=== PATIENT | male | born 1990 | race American Indian/Alaskan Native ===

== ENCOUNTER 2017-06-01 18:42 | Emergency (ER) | payer OTHER ==
[2017-06-01 18:55] VITALS: RESP 18; TEMP 97.9
[2017-06-01 19:55] LABS: BASO # 0.02 K/mm3 (0.0-2.0); BASO % 0.3 % (0.0-3.0); EOS # 0.2 (0.0-0.7); EOS % 2.4 % (1.5-5.0); GRAN # 4.67 (1.4-6.5); GRAN % 60.9 % (50.0-68.0); HEMATOCRIT 37.8 % (42.0-52.0); LYMPH # 1.8 (1.2-3.4); LYMPH % 24.1 % (22.0-35.0); MEAN CELL VOLUME 82.4 fl (80.0-105.0); MEAN CORPUSCULAR HEMOGLOBIN 27.2 pg (25.0-35.0); MEAN CORPUSCULAR HGB CONC 33.1 g/dl (31.0-37.0); MONO # 0.9 (0.1-0.6); MONO % 12.3 % (1.0-6.0); RED CELL DISTRIBUTION WIDTH 13.4 % (11.5-14.5); WHITE BLOOD COUNT 7.7 10^3/ul (4.5-11.0)
[2017-06-01 20:02] LABS: ALB/GLOB RATIO 1.3 (1.1-1.8); ALKALINE PHOSPHATASE 73 U/L (38-126); ALT/SGPT 28 U/L (7-56); AST/SGOT 20 U/L (17-59); BILIRUBIN,TOTAL 0.6 mg/dL (0.2-1.3); BLOOD UREA NITROGEN 16 mg/dL (7-21); CALCIUM 9.1 mg/dL (8.4-10.5); CARBON DIOXIDE 26 mmol/L (21-33); CHLORIDE 103 mmol/L (98-107); GFR AFRICAN-AMERICAN > 60; GLUCOSE,RANDOM 85 mg/dL (70-110); LIPASE 51 U/L (23-300); POTASSIUM 3.9 mmol/L (3.6-5.0); SODIUM 141 mmol/L (132-148); TOTAL PROTEIN 7.4 g/dL (5.8-8.3)
[2017-06-01 21:04] VITALS: BP 131/78; PULSE 72; O2SAT 97
--- NOTE | 2017-06-01 21:18 | CT ---
EXAM: CT Abdomen and Pelvis Without Intravenous Contrast EXAM DATE/TIME: 06/01/2017 6:57 PM CLINICAL HISTORY: 27 years old, male; Pain; Abdominal pain; Acute TECHNIQUE: Axial computed tomography images of the abdomen and pelvis without intravenous contrast. All CT scans at this facility use one or more dose reduction techniques, viz.: automated exposure control; ma/kV adjustment per patient size (including targeted exams where dose is matched to indication; i.e. head); or iterative reconstruction technique. Coronal and sagittal reformatted images were created and reviewed. COMPARISON: There are no prior studies for comparison. FINDINGS: Lower thorax: Heart size is normal. Lung bases are clear. ABDOMEN: Liver: unremarkable Gallbladder and bile ducts: unremarkable Pancreas: unremarkable Spleen: unremarkable Adrenals: unremarkable Kidneys and ureters: There are bilateral nonobstructing renal stones. Orientation suggests tubular ectasia. Left kidney and ureter are otherwise unremarkable. There is obstructive uropathy on the right. There is a 3 mm obstructing distal right ureteral stone just proximal to the ureteropelvic junction. Stomach and bowel: Stomach is almost empty. Rotation is normal. There is fluid and air throughout the small bowel. There are mildly distended loops in epigastric region. There is no obstruction. Fecalization of the terminal ileum. Appendix is unremarkable.Colon is incompletely distended which limits evaluation. Appendix: See stomach and bowel PELVIS: Bladder: Bladder is partially distended. There is mild prominence of the bladder wall. Reproductive: Seminal vesicles and prostate are unremarkable. ABDOMEN and PELVIS: Intraperitoneal space: There is no free air or free fluid. Bones/joints: There are no acute osseous abnormalities. Soft tissues: unremarkable Vasculature: Vascular structures are unremarkable. Lymph nodes: There is no pathologic adenopathy. 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
--- NOTE | 2017-06-01 21:46 | ED PDOC ---
Arrival/HPI - General Chief Complaint: Back Pain Time Seen by Provider: 06/01/17 18:57 Historian: Patient, Parent - History of Present Illness Narrative History of Present Illness (Text): 06/01/17 21:43 27yo male with PMHx of Autism in Ed with the mother with complaint of intermittent right side back pain that radiates through the flank to his groin area. Mother states pain has been ongoing for almost 2years now. States it started again recently. He was seen by his PMD and according to the mother US was done and it was negative. States she gave him Aleve earlier in the morning. He denies nausea, vomiting, diarrhea, hematuria, urinary symptoms, any other complaint. Past Medical History - Provider Review Nursing Documentation Reviewed: Yes - Cardiac Hx Cardiac Disorders: Yes Hx Heart Murmur: Yes - Pulmonary Hx Respiratory Disorders: Yes Hx Asthma: Yes - Neurological Hx Neurological Disorder: No - HEENT Hx HEENT Disorder: No - Renal Hx Renal Disorder: No - Endocrine/Metabolic Hx Endocrine Disorders: No - Hematological/Oncological Hx Blood Disorders: No - Integumentary Hx Dermatological Disorder: No - Musculoskeletal/Rheumatological Hx Musculoskeletal Disorders: No - Gastrointestinal Hx Gastrointestinal Disorders: No - Genitourinary/Gynecological Hx Genitourinary Disorders: No - Psychiatric Hx Psychophysiologic Disorder: Yes Hx Substance Use: No Other/Comment: autism - Surgical History Other/Comment: ascending testicle. cyst removed from left forehead - Anesthesia Hx Anesthesia: No Family/Social History - Physician Review Nursing Documentation Reviewed: Yes Family/Social History: Unknown Family HX Smoking Status: Never Smoked Hx Alcohol Use: No Hx Substance Use: No Allergies/Home Meds Allergies/Adverse Reactions: Allergies measles, mumps, and rubella vaccine [From M-M-R II] Allergy (Verified 06/01/17 18:53) ANAPHYLAXIS Review of Systems - Physician Review All systems were reviewed & negative as marked: Yes - Review of Systems Constitutional: Normal Eyes: Normal ENT: Normal Respiratory: Normal Cardiovascular: Normal Gastrointestinal: Abdominal Pain. absent: Constipation, Diarrhea, Nausea, Vomiting, Hematochezia, Hematemesis Genitourinary Male: Normal Musculoskeletal: Normal Skin: Normal Neurological: Normal Endocrine: Normal Hemo/Lymphatic: Normal Psychiatric: Normal Physical Exam Vital Signs Reviewed: Yes Vital Signs Temp Pulse Resp BP Pulse Ox 06/01/17 21:04 72 18 131/78 97 06/01/17 18:54 97.9 F 80 18 110/73 98 Temperature: Afebrile Blood Pressure: Normal Pulse: Regular Respiratory Rate: Normal Appearance: Positive for: Well-Appearing, Non-Toxic, Comfortable Pain Distress: None Mental Status: Positive for: Alert and Oriented X 3 - Systems Exam Head: Present: Atraumatic, Normocephalic Pupils: Present: PERRL Extroacular Muscles: Present: EOMI Conjunctiva: Present: Normal Mouth: Present: Moist Mucous Membranes Neck: Present: Normal Range of Motion Respiratory/Chest: Present: Clear to Auscultation, Good Air Exchange. No: Respiratory Distress, Accessory Muscle Use Cardiovascular: Present: Regular Rate and Rhythm, Normal S1, S2. No: Murmurs Abdomen: Present: Normal Bowel Sounds, Other (Soft). No: Tenderness, Distention , Peritoneal Signs, Rebound, Guarding, McBurney's Point Tender, Rovsing's Sign Present Back: Present: Normal Inspection. No: CVA Tenderness Upper Extremity: Present: Normal Inspection. No: Cyanosis, Edema Lower Extremity: Present: Normal Inspection. No: Edema Neurological: Present: GCS=15, CN II-XII Intact, Speech Normal Skin: Present: Warm, Dry, Normal Color. No: Rashes Psychiatric: Present: Alert, Oriented x 3, Normal Insight, Normal Concentration Medical Decision Making ED Course and Treatment: 06/02/17 02:08 PT was comfortable in ED. Lab was unremarkable. 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 Result was DW Dr. phillips and he recommends that pt be DC to f/u with him tomorrow at 0200pm. Pt was placed on Flomax and Cipro. tylenol #3 given. Both pt and the mother was strongly advised to f/u with dr phillips at 0200pm. CT result was discussed. - Lab Interpretations Lab Results: 06/01/17 19:40 06/01/17 19:40 Lab Results 06/01/17 19:40: Sodium 141, Potassium 3.9, Chloride 103, Carbon Dioxide 26, Anion Gap 15, BUN 16, Creatinine 1.0, Est GFR ( Amer) > 60, Est GFR (Non- Af Amer) > 60, Random Glucose 85, Calcium 9.1, Total Bilirubin 0.6, AST 20, ALT 28, Alkaline Phosphatase 73, Total Protein 7.4, Albumin 4.1, Globulin 3.3, Albumin/Globulin Ratio 1.3, Lipase 51 06/01/17 19:40: WBC 7.7, RBC 4.59, Hgb 12.5 L, Hct 37.8 L, MCV 82.4, MCH 27.2, MCHC 33.1, RDW 13.4, Plt Count 175, MPV 10.0, Gran % 60.9, Lymph % (Auto) 24.1, [place] % (Auto) 12.3 H, Eos % (Auto) 2.4, Baso % (Auto) 0.3, Gran # 4.67, Lymph # 1.8, [place] # 0.9 H, Eos # 0.2, Baso # 0.02 - RAD Interpretation Radiology Orders: 06/01/17 18:57 ABD & PELVIS W/O PO OR IV CONT [CT] Stat - Medication Orders Current Medication Orders: Discontinued Medications Ciprofloxacin (Cipro) 500 mg PO ONCE STA PRN Reason: Protocol Stop: 06/01/17 21:49 Last Admin: 06/01/17 22:00 Dose: 500 mg Tamsulosin HCl (Flomax) 0.4 mg PO STAT STA Stop: 06/01/17 21:48 Last Admin: 06/01/17 22:00 Dose: 0.4 mg Disposition/Present on Arrival - Present on Arrival Any Indicators Present on Arrival: No History of DVT/PE: No History of Uncontrolled Diabetes: No Urinary Catheter: No History of Decub. Ulcer: No History Surgical Site Infection Following: None - Disposition Have Diagnosis and Disposition been Completed?: Yes Diagnosis: Ureterolithiasis Disposition: HOME/ ROUTINE Disposition Time: 21:50 Patient Plan: Discharge Condition: STABLE Discharge Instructions (ExitCare): Ureteral Stones (ED) Additional Instructions: Follow up with Urologist, Dr. phillips at 0200pm tomorrow Drink plenty of fluid Return to ED for any new or worsening symptoms Prescriptions: Acetaminophen with Codeine [Tylenol with Codeine #3 Tablet] 1 each PO Q6 #7 tablet Ciprofloxacin [Cipro] 500 mg PO BID #14 tab Tamsulosin [Flomax] 0.4 mg PO DAILY #4 cap Referrals: Celestina Becerra MD [Primary Care Provider] - Follow up with primary Prakash Phillips MD [Staff Provider] - Follow up with primary Forms: [facility] [employer] ([place]ian)
== END 2017-06-01 22:16 | disposition home or self-care (01) ==
LOC: ED 18:42
DX: N20.1 Calculus of ureter (principal)

== ENCOUNTER 2017-06-02 15:47 | Inpatient (IN) | payer OTHER ==
[2017-06-02 16:15] VITALS: BMI 19.8
[2017-06-02] MEDS ORDERED: Sodium Chloride 0.9% 1,000 ML IV STA (17:03)
[2017-06-02 17:48] LABS: URINE BILIRUBIN NEGATIVE (NEGATIVE); URINE BLOOD NEGATIVE (NEGATIVE); URINE GLUCOSE (UA) NEGATIVE (NEGATIVE); URINE LEUKOCYTE ESTERASE NEGATIVE Leu/uL (NEGATIVE); URINE NITRATE NEGATIVE (NEGATIVE); URINE PROTEIN TRACE mg/dL (<30 mg/dL); URINE UROBILINOGEN 0.2 E.U./dL (<1 E.U./dL)
[2017-06-02 17:50] LABS: BASO # 0.01 K/mm3 (0.0-2.0); BASO % 0.2 % (0.0-3.0); EOS # 0.2 (0.0-0.7); GRAN # 3.74 (1.4-6.5); HEMOGLOBIN 12.6 g/dL (14.0-18.0); LYMPH # 1.7 (1.2-3.4); LYMPH % 26.9 % (22.0-35.0); MEAN CELL VOLUME 82.7 fl (80.0-105.0); MEAN CORPUSCULAR HEMOGLOBIN 26.9 pg (25.0-35.0); MEAN CORPUSCULAR HGB CONC 32.5 g/dl (31.0-37.0); MEAN PLATELET VOLUME 10.5 fl (7.0-11.0); MONO # 0.7 (0.1-0.6); MONO % 10.9 % (1.0-6.0); RBC 4.69 10^6/uL (3.5-6.1); RED CELL DISTRIBUTION WIDTH 13.5 % (11.5-14.5); WHITE BLOOD COUNT 6.3 10^3/ul (4.5-11.0)
[2017-06-02 17:51] LABS: URINE APPEARANCE CLEAR (CLEAR); URINE COLOR YELLOW (YELLOW)
[2017-06-02 18:01] LABS: ALB/GLOB RATIO 1.3 (1.1-1.8); ALBUMIN 4.1 g/dL (3.0-4.8); BLOOD UREA NITROGEN 13 mg/dL (7-21); CALCIUM 9.1 mg/dL (8.4-10.5); GFR AFRICAN-AMERICAN > 60; GFR NON-AFRICAN AMERICAN > 60; URINE BACTERIA FEW (NEG)
[2017-06-02 18:02] LABS: ALT/SGPT 21 U/L (7-56); AST/SGOT 25 U/L (17-59)
[2017-06-02] MEDS ORDERED: Morphine 2 mg/ml ISec IVP STA (18:21)
[2017-06-02] MEDS ORDERED: Morphine 2 mg/ml ISec IVP PRN (19:35)
--- NOTE | 2017-06-02 19:44 | CP.PCM.HP ---
<Osman Jackman - Last Filed: 06/02/17 20:06> History of Present Illness - History of Present Illness History of Present Illness: 27 year old male with a past medical history of autism who comes in complaining of lower abdominal pain for the past couple of days. The patient also reports some nausea and vomiting in conjunction with the initial presenting symptoms. The patient recently was seen by Dr. Momin as an outpatient. The patient was somnolent at the time of the examination and most questions were answered by the mother. The mother states they decided to come in after seeing Dr. Momin in the office and the son having no relief in his symptoms. The patient denies any fevers, chills, lightheadedness, dizziness, headache, chest pain, sick contacts, or any other complaints. Primary medical doctor: Dr. Becerra Past medical history: Autism Medications: Denies Allergies: Mealses, mumps and rubella vaccine Past surgical history: Repair of undescended testicle Present on Admission - Present on Admission Any Indicators Present on Admission: No Review of Systems - Constitutional Constitutional: absent: Chills, Frequent Falls, Headache, Night Sweats - EENT Eyes: absent: Blurred Vision, Diplopia, Discharge, Loss of Peripheral Vision, Requires Corrective Lenses, Sees Flashes, Other Visual Disturbances, Loss of Vision Ears: absent: Ear Discharge, Disequilibrium, Dizziness Nose/Mouth/Throat: absent: Nasal Congestion, Nasal Trauma, Nose Pain, Bleeding Gums, Dysphagia - Cardiovascular Cardiovascular: absent: Chest Pain, Claudication, Irregular Heart Rhythm, Leg Edema, Palpitations, Pedal Edema, Syncope - Respiratory Respiratory: absent: Hemoptysis, Pain on Inspiration, Change in Mucous Color - Gastrointestinal Gastrointestinal: Abdominal Pain, Nausea, Vomiting. absent: Belching, Change in Stool Character, Excessive Flatus, Fecal Incontinence, Loose Stools, Temesmus - Genitourinary Genitourinary: absent: Pyuria, Nocturia, Urinary Hesitance, Bladder Distension - Musculoskeletal Musculoskeletal: absent: Abnormal Gait, Arthralgias, Muscle Weakness, Myalgias - Neurological Neurological: absent: Abnormal Hearing, Behavioral Changes, Dizziness, Lack of Coordination, Radicular Pain, Tingling - Psychiatric Psychiatric: absent: Abnormal Sleep Pattern, Behavioral Changes, Depression, Hopelessness, Panic Attacks, Tactile Hallucinations - Endocrine Endocrine: absent: Polydipsia, Polyphagia, Polyuria - Hematologic/Lymphatic Hematologic: absent: Easy Bleeding, Easy Bruising Past Patient History - Past Social History Smoking Status: Never Smoked - CARDIAC Hx Cardiac Disorders: Yes Hx Heart Murmur: Yes - PULMONARY Hx Respiratory Disorders: Yes Hx Asthma: Yes - NEUROLOGICAL Hx Neurological Disorder: No - HEENT Hx HEENT Problems: No - RENAL Hx Chronic Kidney Disease: No - ENDOCRINE/METABOLIC Hx Endocrine Disorders: No - HEMATOLOGICAL/ONCOLOGICAL Hx Blood Disorders: No - INTEGUMENTARY Hx Dermatological Problems: No - MUSCULOSKELETAL/RHEUMATOLOGICAL Hx Musculoskeletal Disorders: No - GASTROINTESTINAL Hx Gastrointestinal Disorders: No - GENITOURINARY/GYNECOLOGICAL Hx Genitourinary Disorders: No - PSYCHIATRIC Hx Psychophysiologic Disorder: Yes Hx Substance Use: No Other/Comment: autism - SURGICAL HISTORY Other/Comment: ascending testicle. cyst removed - ANESTHESIA Hx Anesthesia: Yes Hx Anesthesia Reactions: No Hx Malignant Hyperthermia: No Meds Allergies/Adverse Reactions: Allergies Allergy/AdvReac Type Severity Reaction Status Date / Time measles, mumps, and rubella Allergy ANAPHYLAXIS Verified 06/01/17 18:53 vaccine [From M-M-R II] Physical Exam - Head Exam Head Exam: ATRAUMATIC, NORMAL INSPECTION, NORMOCEPHALIC - Eye Exam Eye Exam: EOMI, Normal appearance, PERRL. absent: Periorbital tenderness Pupil Exam: NORMAL ACCOMODATION, PERRL. absent: Irregular, Unequal - ENT Exam ENT Exam: Mucous Membranes Moist, Normal Oropharynx - Respiratory Exam Respiratory Exam: Clear to Auscultation Bilateral, NORMAL BREATHING PATTERN. absent: Chest Wall Tenderness, Prolonged Expiratory Phase, Respiratory Distress - Cardiovascular Exam Cardiovascular Exam: REGULAR RHYTHM, RRR, +S1, +S2. absent: Gallop, Rubs - GI/Abdominal Exam GI & Abdominal Exam: Normal Bowel Sounds, Tenderness. absent: Distended, Hypoactive Bowel Sounds, Organomegaly - Extremities Exam Extremities exam: Negative for: full ROM, joint swelling, pedal edema, tenderness - Back Exam Back exam: CVA tenderness (R), NORMAL INSPECTION - Neurological Exam Neurological exam: Alert, CN II-XII Intact, Oriented x3 - Psychiatric Exam Psychiatric exam: Normal Affect, Normal Mood - Skin Skin Exam: Dry, Intact, Normal Color Results - Vital Signs Recent Vital Signs: Last Vital Signs Temp 98.2 F 06/02/17 16:24 Pulse 79 06/02/17 17:33 Resp 18 06/02/17 17:33 BP 123/71 06/02/17 17:33 Pulse Ox 100 06/02/17 17:33 - Labs Result Diagrams: 06/02/17 17:30 06/02/17 17:30 Assessment & Plan - Assessment and Plan (Free Text) Assessment: 27 year old male with past medical history of autism who is being admitted for a 3 mm obstructing distal right ureteral stone. Plan: 1. 3MM Obstructing distal right ureteral stone -Urology Consulted. Will f/u with results. -NPO -IV fluids -Morphine 2mg q4PRN for pain management. GI ppx -Protonix DVT ppx -Heparin <Cara Nevarez - Last Filed: 06/04/17 03:25> Results - Vital Signs Recent Vital Signs: Last Vital Signs Temp 98.6 F 06/03/17 18:00 Pulse 69 06/03/17 18:00 Resp 18 06/03/17 18:00 BP 117/69 06/03/17 18:00 Pulse Ox 98 06/03/17 18:00 - Labs Result Diagrams: 06/03/17 05:30 06/03/17 05:30 Labs: Laboratory Results - last 24 hr 06/03/17 06/03/17 05:30 05:30 WBC 5.0 D RBC 4.39 Hgb 11.6 L Hct 36.3 L MCV 82.7 MCH 26.4 MCHC 32.0 RDW 13.6 Plt Count 167 MPV 10.5 Gran % 31.8 L Lymph % (Auto) 55.2 H [place] % (Auto) 6.5 H Eos % (Auto) 6.3 H Baso % (Auto) 0.2 Gran # 1.58 Lymph # 2.7 [place] # 0.3 Eos # 0.3 Baso # 0.01 Sodium 140 Potassium 3.7 Chloride 106 Carbon Dioxide 30 Anion Gap 8 L BUN 11 Creatinine 0.8 Est GFR ( Amer) > 60 Est GFR (Non-Af Amer) > 60 Random Glucose 77 Calcium 8.5 Total Bilirubin 0.7 AST 18 ALT 18 Alkaline Phosphatase 47 Total Protein 6.3 Albumin 3.3 Globulin 3.0 Albumin/Globulin Ratio 1.1
--- NOTE | 2017-06-02 20:09 | ED PDOC ---
Arrival/HPI - General Chief Complaint: Abdominal Pain Time Seen by Provider: 06/02/17 17:02 Historian: Patient, Parent - History of Present Illness Narrative History of Present Illness (Text): 06/02/17 21:01 27-year-old autistic male presents today with continued abdominal pain. Patient points to the right side of the abdomen when he asked where his pain is. Mom states the patient was seen in the emergency room yesterday and diagnosed with an obstructing kidney stone. Mom states the patient has been taking Motrin for pain at home. Mom states the patient was seen by the the urologist Dr. Phillips today in the office. Mom states the patient has been taking Flomax and Cipro for infection. Mom presents today with the patient because the patient is complaining of continued pain. Patient unable to describe the pain is only able to point to the right side of the abdomen. Past Medical History - Provider Review Nursing Documentation Reviewed: Yes - Travel History Have you recently traveled outside [place] w/in the past 3 mons?: No - Cardiac Hx Cardiac Disorders: Yes Hx Heart Murmur: Yes - Pulmonary Hx Respiratory Disorders: Yes Hx Asthma: Yes - Neurological Hx Neurological Disorder: No - HEENT Hx HEENT Disorder: No - Renal Hx Renal Disorder: No - Endocrine/Metabolic Hx Endocrine Disorders: No - Hematological/Oncological Hx Blood Disorders: No - Integumentary Hx Dermatological Disorder: No - Musculoskeletal/Rheumatological Hx Musculoskeletal Disorders: No - Gastrointestinal Hx Gastrointestinal Disorders: No - Genitourinary/Gynecological Hx Genitourinary Disorders: No - Psychiatric Hx Psychophysiologic Disorder: Yes Hx Substance Use: No Other/Comment: autism - Surgical History Other/Comment: ascending testicle. cyst removed - Anesthesia Hx Anesthesia: Yes Hx Anesthesia Reactions: No Hx Malignant Hyperthermia: No Family/Social History - Physician Review Nursing Documentation Reviewed: Yes Family/Social History: Unknown Family HX Smoking Status: Never Smoked Hx Alcohol Use: No Hx Substance Use: No Allergies/Home Meds Allergies/Adverse Reactions: Allergies measles, mumps, and rubella vaccine [From M-M-R II] Allergy (Verified 06/01/17 18:53) ANAPHYLAXIS Review of Systems - Review of Systems Systems not reviewed;Unavailable: Other (autism) Constitutional: absent: Fevers Respiratory: absent: Cough Cardiovascular: absent: Chest Pain Gastrointestinal: Abdominal Pain, Vomiting Genitourinary Male: absent: Frequency, Urinary Output Changes Musculoskeletal: Back Pain Skin: absent: Rash Neurological: absent: Headache Physical Exam Vital Signs Reviewed: Yes Vital Signs Temp Pulse Resp BP Pulse Ox 06/02/17 20:41 68 16 105/65 98 06/02/17 17:33 79 18 123/71 100 06/02/17 16:24 98.2 F 86 18 125/76 100 Temperature: Afebrile Blood Pressure: Normal Pulse: Regular Respiratory Rate: Normal Appearance: Positive for: Well-Appearing, Non-Toxic, Comfortable Pain Distress: None Mental Status: Positive for: Alert and Oriented X 3 - Systems Exam Head: Present: Atraumatic Mouth: Present: Moist Mucous Membranes Neck: Present: Normal Range of Motion Respiratory/Chest: Present: Clear to Auscultation, Good Air Exchange. No: Respiratory Distress, Accessory Muscle Use Cardiovascular: Present: Regular Rate and Rhythm, Normal S1, S2. No: Murmurs Abdomen: Present: Tenderness (minimal right sided abdominal tenderness), Normal Bowel Sounds. No: Distention, Peritoneal Signs, Rebound, Guarding Back: Present: Normal Inspection, CVA Tenderness (right sided) Skin: Present: Warm, Dry, Normal Color. No: Rashes Psychiatric: Present: Alert Medical Decision Making ED Course and Treatment: 06/02/17 21:04 27-year-old male with continued abdominal pain. Patient seen in the emergency room yesterday diagnosed with obstructing kidney stone. CBC within normal limits CMP within normal limits Urinalysis within normal limits Toradol given for pain Zofran given for nausea ct abd/pelvis on 06/01/17: FINDINGS: Lower thorax: Heart size is normal. Lung bases are clear. ABDOMEN: Liver: unremarkable Gallbladder and bile ducts: unremarkable Pancreas: unremarkable Spleen: unremarkable Adrenals: unremarkable Kidneys and ureters: There are bilateral nonobstructing renal stones. Orientation suggests tubular ectasia. Left kidney and ureter are otherwise unremarkable. There is obstructive uropathy on the right. There is a 3 mm obstructing distal right ureteral stone just proximal to the ureteropelvic junction. Stomach and bowel: Stomach is almost empty. Rotation is normal. There is fluid and air throughout the small bowel. There are mildly distended loops in epigastric region. There is no obstruction. Fecalization of the terminal ileum. Appendix is unremarkable.Colon is incompletely distended which limits evaluation. Appendix: See stomach and bowel PELVIS: Bladder: Bladder is partially distended. There is mild prominence of the bladder wall. Reproductive: Seminal vesicles and prostate are unremarkable. ABDOMEN and PELVIS: Intraperitoneal space: There is no free air or free fluid. Bones/joints: There are no acute osseous abnormalities. Soft tissues: unremarkable Vasculature: Vascular structures are unremarkable. Lymph nodes: There is no pathologic adenopathy. 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 Patient reassessment:feeling better after medications. resting comfortably with mother at bedside. Case was discussed with Dr. Phillips. He states that he saw the patient in the office today and he would like to do a procedure for the kidney stone tomorrow. Case was discussed with Dr. Tristan who accepts observational status admission for intractable abdominal pain obstructing kidney stone. All results were discussed in depth with the parents/patient. Impression: Intractable abdominal pain, obstructing nephrolithiasis Admit observational status to [facility] with urology consult Dr. Phillips. - Lab Interpretations Lab Results: 06/02/17 17:30 06/02/17 17:30 Lab Results 06/02/17 17:30: WBC 6.3, RBC 4.69, Hgb 12.6 L, Hct 38.8 L, MCV 82.7, MCH 26.9, MCHC 32.5, RDW 13.5, Plt Count 189, MPV 10.5, Gran % 59.0, Lymph % (Auto) 26.9, [place] % (Auto) 10.9 H, Eos % (Auto) 3.0, Baso % (Auto) 0.2, Gran # 3.74, Lymph # 1.7, [place] # 0.7 H, Eos # 0.2, Baso # 0.01 06/02/17 17:30: Urine Color Yellow, Urine Appearance Clear, Urine pH 6.0, Ur Specific [place] >= 1.030, Urine Protein Trace H, Urine Glucose (UA) Negative, Urine Ketones Negative, Urine Blood Negative, Urine Nitrate Negative, Urine Bilirubin Negative, Urine Urobilinogen 0.2, Ur Leukocyte Esterase Negative, Urine RBC 1 - 3, Urine WBC 1 - 3, Ur Epithelial Cells 3 - 4, Urine Bacteria Few 06/02/17 17:30: Sodium 140, Potassium 4.4, Chloride 101, Carbon Dioxide 28, Anion Gap 15, BUN 13, Creatinine 1.2, Est GFR ( Amer) > 60, Est GFR (Non- Af Amer) > 60, Random Glucose 82, Calcium 9.1, Total Bilirubin 0.6, AST 25, ALT 21, Alkaline Phosphatase 50, Total Protein 7.2, Albumin 4.1, Globulin 3.0, Albumin/Globulin Ratio 1.3 - Medication Orders Current Medication Orders: Sodium Chloride (Sodium Chloride 0.9%) 1,000 mls @ 100 mls/hr IV .Q10H [facility] Morphine Sulfate (Morphine) 2 mg IVP Q4 PRN PRN Reason: Pain, severe (8-10) Ondansetron HCl (Zofran Inj) 2 mg IVP Q4 PRN PRN Reason: Nausea/Vomiting Discontinued Medications Sodium Chloride (Sodium Chloride 0.9%) 1,000 mls @ 999 mls/hr IV .Q1H1M STA Stop: 06/02/17 18:03 Last Admin: 06/02/17 17:31 Dose: 999 mls/hr eMAR Start Stop Document 06/02/17 17:31 HI (Rec: 06/02/17 17:31 [place] [id number]) Intravenous Solution Start Date 06/02/17 Start Time 17:31 Ketorolac Tromethamine (Toradol) 30 mg IVP STAT STA Stop: 06/02/17 17:04 Last Admin: 06/02/17 17:31 Dose: 30 mg MAR Pain Assessment Document 06/02/17 17:31 HI (Rec: 06/02/17 17:32 [place] [id number]) Pain Reassessment Is this a pain reassessment? No Sleep Is patient sleeping during reassessment? No Presence of Pain Presence of Pain Yes IVP Administration Document 06/02/17 17:31 HI (Rec: 06/02/17 17:32 [id number]) Charges for Administration # of IVP Administrations 1 Re-Assess: MAR Pain Assessment Document 06/02/17 18:31 HI (Rec: 06/02/17 18:52 [place] [id number]) Pain Reassessment Is this a pain reassessment? Yes Sleep Is patient sleeping during reassessment? No Presence of Pain Presence of Pain Yes Morphine Sulfate (Morphine) 2 mg IVP STAT STA Stop: 06/02/17 18:22 Last Admin: 06/02/17 19:01 Dose: 2 mg MAR Pain Assessment Document 06/02/17 19:01 HI (Rec: 06/02/17 19:02 [place] [id number]) Pain Reassessment Is this a pain reassessment? Yes Sleep Is patient sleeping during reassessment? No Presence of Pain Presence of Pain Yes IVP Administration Document 06/02/17 19:01 HI (Rec: 06/02/17 19:02 [place] [id number]) Charges for Administration # of IVP Administrations 1 Ondansetron HCl (Zofran Inj) 4 mg IVP STAT STA Stop: 06/02/17 18:22 Last Admin: 06/02/17 19:02 Dose: 4 mg IVP Administration Document 06/02/17 19:02 HI (Rec: 06/02/17 19:02 [place] [id number]) Charges for Administration # of IVP Administrations 1 Disposition/Present on Arrival - Present on Arrival Any Indicators Present on Arrival: No History of DVT/PE: No History of Uncontrolled Diabetes: No Urinary Catheter: No History of Decub. Ulcer: No History Surgical Site Infection Following: None - Disposition Have Diagnosis and Disposition been Completed?: Yes Diagnosis: Intractable abdominal pain, Urinary tract obstruction by kidney stone Disposition: HOSPITALIZED Disposition Time: 18:08 Patient Plan: Observation Patient Problems: Current Active Problems Problem Status Onset Intractable abdominal pain Acute Urinary tract obstruction by kidney stone Acute Condition: FAIR
[2017-06-02] MEDS: Sodium Chloride 0.9% 1,000 ML IV SCH (21:47)
[2017-06-03 06:25] LABS: BASO # 0.01 K/mm3 (0.0-2.0); BASO % 0.2 % (0.0-3.0); EOS # 0.3 (0.0-0.7); EOS % 6.3 % (1.5-5.0); GRAN # 1.58 (1.4-6.5); GRAN % 31.8 % (50.0-68.0); HEMOGLOBIN 11.6 g/dL (14.0-18.0); LYMPH # 2.7 (1.2-3.4); LYMPH % 55.2 % (22.0-35.0); MEAN CELL VOLUME 82.7 fl (80.0-105.0); MEAN CORPUSCULAR HEMOGLOBIN 26.4 pg (25.0-35.0); MEAN PLATELET VOLUME 10.5 fl (7.0-11.0); MONO # 0.3 (0.1-0.6); MONO % 6.5 % (1.0-6.0); RBC 4.39 10^6/uL (3.5-6.1); RED CELL DISTRIBUTION WIDTH 13.6 % (11.5-14.5)
[2017-06-03] MEDS: Sodium Chloride 0.9% 1,000 ML IV SCH ×2 (06:35→17:27)
[2017-06-03 06:50] LABS: ALB/GLOB RATIO 1.1 (1.1-1.8); ALBUMIN 3.3 g/dL (3.0-4.8); ALT/SGPT 18 U/L (7-56); AST/SGOT 18 U/L (17-59); BLOOD UREA NITROGEN 11 mg/dL (7-21); CALCIUM 8.5 mg/dL (8.4-10.5); GFR AFRICAN-AMERICAN > 60; GFR NON-AFRICAN AMERICAN > 60
--- NOTE | 2017-06-03 10:10 | PCM.URO ---
Urology Progress Note - Subjective Abdominal Pain: Yes - Objective Lab Studies: Reviewed (pt for cysto 06/04 at 7:30 am) Lab Results Last 24 Hours: Laboratory Results - last 24 hr 06/03/17 06/03/17 05:30 05:30 WBC 5.0 D RBC 4.39 Hgb 11.6 L Hct 36.3 L MCV 82.7 MCH 26.4 MCHC 32.0 RDW 13.6 Plt Count 167 MPV 10.5 Gran % 31.8 L Lymph % (Auto) 55.2 H [place] % (Auto) 6.5 H Eos % (Auto) 6.3 H Baso % (Auto) 0.2 Gran # 1.58 Lymph # 2.7 [place] # 0.3 Eos # 0.3 Baso # 0.01 Sodium 140 Potassium 3.7 Chloride 106 Carbon Dioxide 30 Anion Gap 8 L BUN 11 Creatinine 0.8 Est GFR ( Amer) > 60 Est GFR (Non-Af Amer) > 60 Random Glucose 77 Calcium 8.5 Total Bilirubin 0.7 AST 18 ALT 18 Alkaline Phosphatase 47 Total Protein 6.3 Albumin 3.3 Globulin 3.0 Albumin/Globulin Ratio 1.1 Intake & Output: Intake & Output 06/02/17 06/03/17 06/03/17 18:59 06:59 18:59 Intake Total 120 Output Total 0 Balance 120 Intake: Oral 120 Output: Urine 0 Urine, Voided 0 Other: # Voids Urine, Voided 1 # Bowel Movements 0 Vital Signs: Vital Signs - 24 hr 06/02/17 06/02/17 06/03/17 20:41 23:04 06:00 Temperature 98.1 F 97.6 F Pulse Rate 68 63 58 L Respiratory 16 19 18 Rate Blood Pressure 105/65 106/74 118/76 O2 Sat by Pulse 98 99 Oximetry
--- NOTE | 2017-06-03 10:48 | CP.PCM.PN ---
<Billy Noonan - Last Filed: 06/03/17 10:42> Subjective - Date & Time of Evaluation Date of Evaluation: 06/03/17 Time of Evaluation: 07:30 - Subjective Subjective: Billy Noonan DO PGY1 - Internal Medicine Progress Note Patient seen and examined at bedside. No events overnight. Today, patient reports some improvement in his abdominal pain. Denies any nausea, vomiting, fever, chills, dysuria, hematuria. Objective - Vital Signs/Intake and Output Vital Signs (last 24 hours): Temp Pulse Resp BP Pulse Ox 97.6 F 58 L 18 118/76 99 06/03/17 06:00 06/03/17 06:00 06/03/17 06:00 06/03/17 06:00 06/03/17 06:00 Intake and Output: 06/03/17 06/03/17 06:59 18:59 Intake Total 120 Output Total 0 Balance 120 - Medications Medications: Current Medications Sodium Chloride (Sodium Chloride 0.9%) 1,000 mls @ 100 mls/hr IV .Q10H [facility] Last Admin: 06/03/17 06:35 Dose: 100 mls/hr Morphine Sulfate (Morphine) 2 mg IVP Q4 PRN PRN Reason: Pain, severe (8-10) Ondansetron HCl (Zofran Inj) 2 mg IVP Q4 PRN PRN Reason: Nausea/Vomiting Tamsulosin HCl (Flomax) 0.4 mg PO DAILY [facility] - Labs Labs: 06/03/17 05:30 06/03/17 05:30 - Constitutional Appears: Non-toxic, No Acute Distress, Confused - Head Exam Head Exam: ATRAUMATIC, NORMOCEPHALIC - Eye Exam Eye Exam: EOMI, Normal appearance, PERRL - ENT Exam ENT Exam: Mucous Membranes Moist - Neck Exam Neck Exam: Normal Inspection - Respiratory Exam Respiratory Exam: Clear to Ausculation Bilateral, NORMAL BREATHING PATTERN - Cardiovascular Exam Cardiovascular Exam: REGULAR RHYTHM, +S1, +S2 - GI/Abdominal Exam GI & Abdominal Exam: Soft, Normal Bowel Sounds. absent: Distended, Firm, Guarding, Rigid, Tenderness, Organomegaly - Extremities Exam Extremities Exam: absent: Calf Tenderness, Pedal Edema - Back Exam Back Exam: absent: CVA tenderness (L), CVA tenderness (R) - Neurological Exam Neurological Exam: Alert, Awake, Oriented x3 - Psychiatric Exam Additional comments: Patient somnolent, slow to respond, avoids gaze. - Skin Skin Exam: Dry, Intact, Normal Color Assessment and Plan - Assessment and Plan (Free Text) Assessment: 27 year old male with past medical history of autism who is being admitted for a 3 mm obstructing distal right ureteral stone. Plan: 1. 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 Phillips) who scheduled him for cystoscopy tomorrow at 7:30 AM - Continue IV fluids - Start Flomax - Continue Morphine 2mg q4PRN for pain management; patient has not requested it and pain currently improved since yesterday GI/DVT Ppx - Heparin and Protonix Patient seen, discussed, and reviewed with attending <Philippe Ladd - Last Filed: 06/03/17 16:12> Objective - Vital Signs/Intake and Output Vital Signs (last 24 hours): Temp Pulse Resp BP Pulse Ox 97.6 F 58 L 18 118/76 99 06/03/17 06:00 06/03/17 06:00 06/03/17 06:00 06/03/17 06:00 06/03/17 06:00 Intake and Output: 06/03/17 06/03/17 06:59 18:59 Intake Total 120 Output Total 0 Balance 120 - Medications Medications: Current Medications Famotidine (Pepcid) 40 mg PO HS [facility] Sodium Chloride (Sodium Chloride 0.9%) 1,000 mls @ 100 mls/hr IV .Q10H [facility] Last Admin: 06/03/17 06:35 Dose: 100 mls/hr Morphine Sulfate (Morphine) 2 mg IVP Q4 PRN PRN Reason: Pain, severe (8-10) Ondansetron HCl (Zofran Inj) 2 mg IVP Q4 PRN PRN Reason: Nausea/Vomiting Tamsulosin HCl (Flomax) 0.4 mg PO DAILY [facility] - Labs Labs: 06/03/17 05:30 06/03/17 05:30 Attending/Attestation - Attestation I have personally seen and examined this patient.: Yes I have fully participated in the care of the patient.: Yes I have reviewed all pertinent clinical information, including history, physical exam and plan: Yes Notes (Text): 06/03/17 16:10 Patient was seen and examined with administrative medical director. Agreed with resident assessment and plan. 27 yrs old male was admitted with flank pain due to right ureter stone, pain is improved. Patient is for Lithotripsy tomorrow. Management plan was discussed in detail with patient
[2017-06-04] MEDS: Sodium Chloride 0.9% 1,000 ML IV SCH ×2 (01:45→22:24)
[2017-06-04 06:38] LABS: BASO # 0.02 K/mm3 (0.0-2.0); BASO % 0.4 % (0.0-3.0); EOS # 0.3 (0.0-0.7); EOS % 5.2 % (1.5-5.0); GRAN # 1.7 (1.4-6.5); GRAN % 34.2 % (50.0-68.0); HEMOGLOBIN 11.3 g/dL (14.0-18.0); LYMPH # 2.6 (1.2-3.4); LYMPH % 52.8 % (22.0-35.0); MEAN CELL VOLUME 81.8 fl (80.0-105.0); MEAN CORPUSCULAR HEMOGLOBIN 26.3 pg (25.0-35.0); MEAN CORPUSCULAR HGB CONC 32.2 g/dl (31.0-37.0); MEAN PLATELET VOLUME 10.3 fl (7.0-11.0); MONO # 0.4 (0.1-0.6); MONO % 7.4 % (1.0-6.0); RBC 4.29 10^6/uL (3.5-6.1); RED CELL DISTRIBUTION WIDTH 13.4 % (11.5-14.5)
[2017-06-04 06:47] LABS: ALB/GLOB RATIO 1.1 (1.1-1.8); ALBUMIN 3.2 g/dL (3.0-4.8); ALT/SGPT 28 U/L (7-56); AST/SGOT 26 U/L (17-59); BLOOD UREA NITROGEN 7 mg/dL (7-21); CALCIUM 8.5 mg/dL (8.4-10.5); GFR AFRICAN-AMERICAN > 60; GFR NON-AFRICAN AMERICAN > 60
[2017-06-04] MEDS ORDERED: Lidocaine 2% Jelly (Uro-Jet) ONE (08:01)
[2017-06-04] MEDS ORDERED: Iohexol 240 (50 ml) ONE (08:01)
[2017-06-04] MEDS ORDERED: Propofol 10 mg/ml Inj (20 ML) ONE (08:16)
[2017-06-04] MEDS ORDERED: Midazolam 2 MG/2 ML VIAL ONE (08:17)
[2017-06-04] MEDS ORDERED: Iohexol 240 (50 ml) UR ONE ×2 (08:28→08:34)
[2017-06-04] MEDS ORDERED: cefTRIAXone 1 GM in D5W 100 ML BAG IVPB ONE ×2 (08:32→08:35)
[2017-06-04] MEDS ORDERED: cefTRIAXone (Rocephin) 1 gm Inj ONE (08:32)
[2017-06-04] MEDS ORDERED: Lidocaine 2% Jelly (Uro-Jet) TOP ONE ×2 (08:36→08:48)
[2017-06-04] MEDS ORDERED: Lactated Ringer's 1,000 ML IV SCH (09:15)
--- NOTE | 2017-06-04 11:08 | CP.PCM.PN ---
<Jimmy Noonanenrriquemaría elena - Last Filed: 06/04/17 11:05> Subjective - Date & Time of Evaluation Date of Evaluation: 06/04/17 Time of Evaluation: 07:30 - Subjective Subjective: Luis Danielmaría elena Saran WERNER PGY1 - Internal Medicine Progress Note Patient seen and examined at bedside, initially seen en route to surgery, then seen again postoperatively. Prior to his procedure, he denied any pain, but did report that he 'avoids bending his body'. After the procedure, he was complaining of moderate dysuria and hematuria, seen in the bedside urinal. He denies any fever, chills, abdominal pain, nausea, vomiting. Objective - Vital Signs/Intake and Output Vital Signs (last 24 hours): Temp Pulse Resp BP Pulse Ox 97.3 F L 75 18 139/87 100 06/04/17 09:44 06/04/17 09:44 06/04/17 09:44 06/04/17 09:44 06/04/17 09:44 Intake and Output: 06/04/17 06/04/17 06:59 18:59 Intake Total 720 Output Total 700 Balance 20 - Medications Medications: Current Medications Famotidine (Pepcid) 40 mg PO HS [facility] Last Admin: 06/03/17 21:45 Dose: 40 mg Sodium Chloride (Sodium Chloride 0.9%) 1,000 mls @ 100 mls/hr IV .Q10H [facility] Last Admin: 06/04/17 01:45 Dose: 100 mls/hr Lactated Ringer's (Lactated Ringer's) 1,000 mls @ 75 mls/hr IV .[id number] [facility] Stop: 06/04/17 11:16 Ketorolac Tromethamine (Toradol) 30 mg IVP STAT STA Stop: 06/04/17 11:04 Ketorolac Tromethamine (Toradol) 30 mg IVP Q6H PRN PRN Reason: Pain, moderate (4-7) Morphine Sulfate (Morphine) 2 mg IVP Q4 PRN PRN Reason: Pain, severe (8-10) Ondansetron HCl (Zofran Inj) 2 mg IVP Q4 PRN PRN Reason: Nausea/Vomiting Tamsulosin HCl (Flomax) 0.4 mg PO DAILY [facility] Last Admin: 06/03/17 12:00 Dose: 0.4 mg - Labs Labs: 06/04/17 05:00 06/04/17 05:30 - Constitutional Appears: Non-toxic, No Acute Distress - Head Exam Head Exam: ATRAUMATIC, NORMOCEPHALIC - Eye Exam Eye Exam: EOMI, Normal appearance, PERRL - ENT Exam ENT Exam: Mucous Membranes Moist - Neck Exam Neck Exam: Normal Inspection - Respiratory Exam Respiratory Exam: Clear to Ausculation Bilateral, NORMAL BREATHING PATTERN - Cardiovascular Exam Cardiovascular Exam: REGULAR RHYTHM, +S1, +S2 - GI/Abdominal Exam GI & Abdominal Exam: Soft, Normal Bowel Sounds. absent: Tenderness - Exam Additional comments: Post-procedure, string hanging from urethra, secured in place. - Extremities Exam Extremities Exam: absent: Calf Tenderness, Pedal Edema - Neurological Exam Neurological Exam: Alert, Awake, Oriented x3 - Psychiatric Exam Psychiatric exam: Normal Affect, Normal Mood - Skin Skin Exam: Dry, Intact Assessment and Plan - Assessment and Plan (Free Text) Assessment: 27 year old male with past medical history of autism who is being admitted for a 3 mm obstructing distal right ureteral stone; now s/p cystoscopy, ureteroscopy with stone retrieval, and ureteral stent placement. Plan: 1. 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 Phillips) this morning - Blood tinged urine noted in bedside urinal, no marin hematuria; patient complaining of dysuria - Continue IV fluids - Continue flomax - Stop morphine; Start toradol for pain control - Per Dr. Phillips, stent will be removed tomorrow prior to discharge DVT Ppx - SCDs for DVT Patient seen, discussed, and reviewed with attending <Philippe Ladd - Last Filed: 06/04/17 17:13> Objective - Vital Signs/Intake and Output Vital Signs (last 24 hours): Temp Pulse Resp BP Pulse Ox 97.3 F L 75 18 139/87 100 06/04/17 09:44 06/04/17 09:44 06/04/17 09:44 06/04/17 09:44 06/04/17 09:44 - Medications Medications: Current Medications Sodium Chloride (Sodium Chloride 0.9%) 1,000 mls @ 100 mls/hr IV .Q10H [facility] Last Admin: 06/04/17 01:45 Dose: 100 mls/hr Ketorolac Tromethamine (Toradol) 30 mg IVP Q6H PRN PRN Reason: Pain, moderate (4-7) Last Admin: 06/04/17 16:07 Dose: 30 mg Tamsulosin HCl (Flomax) 0.4 mg PO DAILY [facility] Last Admin: 06/03/17 12:00 Dose: 0.4 mg Attending/Attestation - Attestation I have personally seen and examined this patient.: Yes I have fully participated in the care of the patient.: Yes I have reviewed all pertinent clinical information, including history, physical exam and plan: Yes Notes (Text): 06/04/17 17:12 Patient was seen and examined with medical assistant. Agreed with resident assessment and plan. 27 yrs old male was admitted with flank pain due to right ureter stone, pain is improved. Patient underwent cystoscopy and right ureter stent placement today.He is feeling better after the procedure. Patient can be discharged home if OK with Urology. Management plan was discussed in detail with patient
[2017-06-05] MEDS: Sodium Chloride 0.9% 1,000 ML IV SCH ×2 (04:00→11:09)
[2017-06-05 07:38] LABS: BASO # 0.01 K/mm3 (0.0-2.0); BASO % 0.1 % (0.0-3.0); EOS # 0.3 (0.0-0.7); EOS % 4.2 % (1.5-5.0); GRAN # 2.74 (1.4-6.5); GRAN % 41.1 % (50.0-68.0); HEMOGLOBIN 11.5 g/dL (14.0-18.0); LYMPH # 3.2 (1.2-3.4); LYMPH % 47.7 % (22.0-35.0); MEAN CELL VOLUME 82.3 fl (80.0-105.0); MEAN CORPUSCULAR HEMOGLOBIN 26.4 pg (25.0-35.0); MEAN CORPUSCULAR HGB CONC 32.1 g/dl (31.0-37.0); MEAN PLATELET VOLUME 10.5 fl (7.0-11.0); MONO # 0.5 (0.1-0.6); MONO % 6.9 % (1.0-6.0); RBC 4.35 10^6/uL (3.5-6.1); RED CELL DISTRIBUTION WIDTH 13.3 % (11.5-14.5); WHITE BLOOD COUNT 6.7 10^3/ul (4.5-11.0)
[2017-06-05 08:00] VITALS: BP 123/76; PULSE 77; RESP 20; TEMP 97.6; O2SAT 97
[2017-06-05 08:16] LABS: ALB/GLOB RATIO 1.1 (1.1-1.8); ALBUMIN 3.2 g/dL (3.0-4.8); ALT/SGPT 29 U/L (7-56); AST/SGOT 20 U/L (17-59); BLOOD UREA NITROGEN 6 mg/dL (7-21); CALCIUM 8.2 mg/dL (8.4-10.5); GFR AFRICAN-AMERICAN > 60; GFR NON-AFRICAN AMERICAN > 60
[2017-06-05] MEDS ORDERED: Oxycodone/Acetaminophen 5/325 mg Tab PO STA (09:34)
--- NOTE | 2017-06-05 14:38 | CP.PCM.DIS ---
<Johnson Dugan - Last Filed: 06/07/17 02:27> Provider - Provider Date of Admission: 06/04/17 14:37 Attending physician: Philippe Ladd MD Consults: Dr. Momin Time Spent in preparation of Discharge (in minutes): 45 Hospital Course - Lab Results Lab Results: Most Recent Lab Values WBC 6.7 10^3/ul (4.5-11.0) D 06/05/17 06:30 RBC 4.35 10^6/uL (3.5-6.1) 06/05/17 06:30 Hgb 11.5 g/dL (14.0-18.0) L 06/05/17 06:30 Hct 35.8 % (42.0-52.0) L 06/05/17 06:30 MCV 82.3 fl (80.0-105.0) 06/05/17 06:30 MCH 26.4 pg (25.0-35.0) 06/05/17 06:30 MCHC 32.1 g/dl (31.0-37.0) 06/05/17 06:30 RDW 13.3 % (11.5-14.5) 06/05/17 06:30 Plt Count 171 10^3/uL (120.0-450.0) 06/05/17 06:30 MPV 10.5 fl (7.0-11.0) 06/05/17 06:30 Gran % 41.1 % (50.0-68.0) L 06/05/17 06:30 Lymph % (Auto) 47.7 % (22.0-35.0) H 06/05/17 06:30 Ward % (Auto) 6.9 % (1.0-6.0) H 06/05/17 06:30 Eos % (Auto) 4.2 % (1.5-5.0) 06/05/17 06:30 Baso % (Auto) 0.1 % (0.0-3.0) 06/05/17 06:30 Gran # 2.74 (1.4-6.5) 06/05/17 06:30 Lymph # 3.2 (1.2-3.4) 06/05/17 06:30 Ward # 0.5 (0.1-0.6) 06/05/17 06:30 Eos # 0.3 (0.0-0.7) 06/05/17 06:30 Baso # 0.01 K/mm3 (0.0-2.0) 06/05/17 06:30 Sodium 137 mmol/L (132-148) 06/05/17 06:30 Potassium 3.9 mmol/L (3.6-5.0) 06/05/17 06:30 Chloride 105 mmol/L (98-107) 06/05/17 06:30 Carbon Dioxide 25 mmol/L (21-33) 06/05/17 06:30 Anion Gap 12 (10-20) 06/05/17 06:30 BUN 6 mg/dL (7-21) L 06/05/17 06:30 Creatinine 0.7 mg/dl (0.8-1.5) L 06/05/17 06:30 Est GFR ( Amer) > 60 06/05/17 06:30 Est GFR (Non-Af Amer) > 60 06/05/17 06:30 Random Glucose 91 mg/dL (70-110) 06/05/17 06:30 Calcium 8.2 mg/dL (8.4-10.5) L 06/05/17 06:30 Total Bilirubin 0.2 mg/dL (0.2-1.3) 06/05/17 06:30 AST 20 U/L (17-59) 06/05/17 06:30 ALT 29 U/L (7-56) 06/05/17 06:30 Alkaline Phosphatase 67 U/L (38-126) 06/05/17 06:30 Total Protein 6.1 g/dL (5.8-8.3) 06/05/17 06:30 Albumin 3.2 g/dL (3.0-4.8) 06/05/17 06:30 Globulin 2.9 gm/dL 06/05/17 06:30 Albumin/Globulin Ratio 1.1 (1.1-1.8) 06/05/17 06:30 Urine Color Yellow (YELLOW) 06/02/17 17:30 Urine Appearance Clear (CLEAR) 06/02/17 17:30 Urine pH 6.0 (4.7-8.0) 06/02/17 17:30 Ur Specific Eakly >= 1.030 (1.005-1.035) 06/02/17 17:30 Urine Protein Trace mg/dL (<30 mg/dL) H 06/02/17 17:30 Urine Glucose (UA) Negative mg/dL (NEGATIVE) 06/02/17 17:30 Urine Ketones Negative mg/dL (NEGATIVE) 06/02/17 17:30 Urine Blood Negative (NEGATIVE) 06/02/17 17:30 Urine Nitrate Negative (NEGATIVE) 06/02/17 17:30 Urine Bilirubin Negative (NEGATIVE) 06/02/17 17:30 Urine Urobilinogen 0.2 E.U./dL (<1 E.U./dL) 06/02/17 17:30 Ur Leukocyte Esterase Negative Lfores/uL (NEGATIVE) 06/02/17 17:30 Urine RBC 1 - 3 /hpf (0-2) 06/02/17 17:30 Urine WBC 1 - 3 /hpf (0-6) 06/02/17 17:30 Ur Epithelial Cells 3 - 4 /hpf (0-5) 06/02/17 17:30 Urine Bacteria Few (NEG) 06/02/17 17:30 - Hospital Course Hospital Course: 27 year old male with Autistic Spectrum Disorder who presented to [facility] [place] ED on with lower abdominal/flank pain and was found to have a 3 mm obstructing distal right ureteral stone along with multiple small bilateral nonobstructing stones. Dr. Momin was consulted and performed cystoscopy with removal of the stone and ureteral stent placement. The patient was managed with analgesia, fluids, and smooth muscle relaxants. The day following cystoscopy the patient's ureteral stent was removed and he was discharged with the below written instructions and prescriptions. He was advised to increase his fluid intake to 2 L per day. - Date & Time of H&P Date of H&P: 06/05/17 Time of H&P: 14:30 Discharge Exam - Head Exam Head Exam: ATRAUMATIC, NORMOCEPHALIC - Eye Exam Eye Exam: EOMI, Normal appearance, PERRL - ENT Exam ENT Exam: Mucous Membranes Moist, Normal Oropharynx - Neck Exam Neck exam: Normal Inspection - Respiratory Exam Respiratory Exam: Clear to PA & Lateral, NORMAL BREATHING PATTERN - Cardiovascular Exam Cardiovascular Exam: RRR, +S1, +S2 - GI/Abdominal Exam GI & Abdominal Exam: Normal Bowel Sounds, Unremarkable - Exam External exam: NORMAL EXTERNAL EXAM - Extremities Exam Extremities exam: normal inspection - Back Exam Back exam: NORMAL INSPECTION. absent: CVA tenderness (L), CVA tenderness (R) - Neurological Exam Neurological exam: Alert, CN II-XII Intact, Oriented x3 - Psychiatric Exam Psychiatric exam: Normal Affect, Normal Mood - Skin Skin Exam: Dry, Intact, Normal Color, Warm Discharge Plan - Discharge Medications Prescriptions: Ibuprofen [Motrin] 600 mg PO Q8H PRN #18 tab PRN Reason: Pain, Moderate (4-7) Tamsulosin [Flomax] 0.4 mg PO DAILY #7 cap - Follow Up Plan Condition: FAIR Disposition: HOME/ ROUTINE Instructions: Renal Colic (GEN), Abdominal Pain (ED) Additional Instructions: 1) Patient to take Flomax daily for the next seven days. 2) Patient to take Tylenol 3 for severe pain, Motrin for moderate pain, and Tylenol for mild pain. 3) Patient to drink 2 Liters of fluid each day. 4) Patient to follow up with Dr. Momin. 5) Patient to follow up with primary medical doctor within the next 7 days. 6) Patient to take any prescriptions as directed, unless otherwise indicated. 7) Patient to return to the ED for any worsening of symptoms. <Philippe Ladd - Last Filed: 06/07/17 16:18> Provider - Provider Date of Admission: 06/04/17 14:37 Attending physician: Philippe Ladd MD Hospital Course - Lab Results Lab Results: Most Recent Lab Values WBC 6.7 10^3/ul (4.5-11.0) D 06/05/17 06:30 RBC 4.35 10^6/uL (3.5-6.1) 06/05/17 06:30 Hgb 11.5 g/dL (14.0-18.0) L 06/05/17 06:30 Hct 35.8 % (42.0-52.0) L 06/05/17 06:30 MCV 82.3 fl (80.0-105.0) 06/05/17 06:30 MCH 26.4 pg (25.0-35.0) 06/05/17 06:30 MCHC 32.1 g/dl (31.0-37.0) 06/05/17 06:30 RDW 13.3 % (11.5-14.5) 06/05/17 06:30 Plt Count 171 10^3/uL (120.0-450.0) 06/05/17 06:30 MPV 10.5 fl (7.0-11.0) 06/05/17 06:30 Gran % 41.1 % (50.0-68.0) L 06/05/17 06:30 Lymph % (Auto) 47.7 % (22.0-35.0) H 06/05/17 06:30 Ward % (Auto) 6.9 % (1.0-6.0) H 06/05/17 06:30 Eos % (Auto) 4.2 % (1.5-5.0) 06/05/17 06:30 Baso % (Auto) 0.1 % (0.0-3.0) 06/05/17 06:30 Gran # 2.74 (1.4-6.5) 06/05/17 06:30 Lymph # 3.2 (1.2-3.4) 06/05/17 06:30 Ward # 0.5 (0.1-0.6) 06/05/17 06:30 Eos # 0.3 (0.0-0.7) 06/05/17 06:30 Baso # 0.01 K/mm3 (0.0-2.0) 06/05/17 06:30 Sodium 137 mmol/L (132-148) 06/05/17 06:30 Potassium 3.9 mmol/L (3.6-5.0) 06/05/17 06:30 Chloride 105 mmol/L (98-107) 06/05/17 06:30 Carbon Dioxide 25 mmol/L (21-33) 06/05/17 06:30 Anion Gap 12 (10-20) 06/05/17 06:30 BUN 6 mg/dL (7-21) L 06/05/17 06:30 Creatinine 0.7 mg/dl (0.8-1.5) L 06/05/17 06:30 Est GFR ( Amer) > 60 06/05/17 06:30 Est GFR (Non-Af Amer) > 60 06/05/17 06:30 Random Glucose 91 mg/dL (70-110) 06/05/17 06:30 Calcium 8.2 mg/dL (8.4-10.5) L 06/05/17 06:30 Total Bilirubin 0.2 mg/dL (0.2-1.3) 06/05/17 06:30 AST 20 U/L (17-59) 06/05/17 06:30 ALT 29 U/L (7-56) 06/05/17 06:30 Alkaline Phosphatase 67 U/L (38-126) 06/05/17 06:30 Total Protein 6.1 g/dL (5.8-8.3) 06/05/17 06:30 Albumin 3.2 g/dL (3.0-4.8) 06/05/17 06:30 Globulin 2.9 gm/dL 06/05/17 06:30 Albumin/Globulin Ratio 1.1 (1.1-1.8) 06/05/17 06:30 Urine Color Yellow (YELLOW) 06/02/17 17:30 Urine Appearance Clear (CLEAR) 06/02/17 17:30 Urine pH 6.0 (4.7-8.0) 06/02/17 17:30 Ur Specific Eakly >= 1.030 (1.005-1.035) 06/02/17 17:30 Urine Protein Trace mg/dL (<30 mg/dL) H 06/02/17 17:30 Urine Glucose (UA) Negative mg/dL (NEGATIVE) 06/02/17 17:30 Urine Ketones Negative mg/dL (NEGATIVE) 06/02/17 17:30 Urine Blood Negative (NEGATIVE) 06/02/17 17:30 Urine Nitrate Negative (NEGATIVE) 06/02/17 17:30 Urine Bilirubin Negative (NEGATIVE) 06/02/17 17:30 Urine Urobilinogen 0.2 E.U./dL (<1 E.U./dL) 06/02/17 17:30 Ur Leukocyte Esterase Negative Flores/uL (NEGATIVE) 06/02/17 17:30 Urine RBC 1 - 3 /hpf (0-2) 06/02/17 17:30 Urine WBC 1 - 3 /hpf (0-6) 06/02/17 17:30 Ur Epithelial Cells 3 - 4 /hpf (0-5) 06/02/17 17:30 Urine Bacteria Few (NEG) 06/02/17 17:30 Attending/Attestation - Attestation I have personally seen and examined this patient.: Yes I have fully participated in the care of the patient.: Yes I have reviewed all pertinent clinical information, including history, physical exam and plan: Yes Notes (Text): 06/07/17 16:17 Patient was seen and examined with medical technologist hematology. Agreed with resident assessment and plan. 27 yrs old male was admitted with flank pain due to right ureter stone, pain is improved. Patient underwent cystoscopy and right ureter stent placement today.He is feeling better after the procedure. Patient will be discharged home and will follow up with Urology. Management plan was discussed in detail with patient and mother who is at bed side.
--- NOTE | 2017-06-10 20:00 | RAD ---
PROCEDURE: Retrograde pyelogram HISTORY: Right ureteral stone COMPARISON: TECHNIQUE: Fluoroscopy was provided in the operating room. 22 seconds of fluoro time were used. Ten images submitted FINDINGS: A small filling defect is seen in the distal ureter. There is passage of a wire and placement of a stent in the right ureter. The procedure was performed by Dr. Inderjit Phillips IMPRESSION: As above
--- NOTE | 2017-06-21 00:36 | PN ---
DATE: UROLOGY POSTOPERATIVE NOTE SUBJECTIVE: See the operative note and consult note. The patient is very pleasant gentleman here. He is now in the recovery room in stable condition. He is status post cystoscopy, ureteroscopy, laser lithotripsy, and he has a stent with dangles. The plan is antibiotics. Further monitoring of the patient. Based on his clinical history and his mental status and his overall clinical status, we are going to keep the patient in the hospital and then we will plan to remove the double J-stent to follow. I do not think the mother does not feel comfortable and I would not think she will be able to take care of his stent and remove it. So, the patient will be admitted. Jamir Phillips MD
--- NOTE | 2017-06-21 03:55 | CON ---
DATE: UROLOGY CONSULTATION REASON FOR CONSULTATION: Renal colic and kidney stone. HISTORY OF PRESENT ILLNESS: Mr. Tino Cristobal initially was seen in the ER and then come to the office. His mother reports that he is having pain. He happens to be autistic. I am unable to communicate well, but he has on his CT scan, has a 3 mm stone and the mother says that he is having more pain and she gives out this by agony and by other things. He has 3-mm stone with hydronephrosis. We discussed the options and we brought him back to hospital as an emergency admission and she came back to the Emergency Room and she has actually see the plans listed below going up the operative room, this is a Urology consult. PAST MEDICAL AND SURGICAL HISTORY: Detailed medical and surgical history is listed on the chart. REVIEW OF SYSTEMS: As listed above, otherwise it is very difficult to tell, the history is mostly from the mother. PHYSICAL EXAMINATION: GENERAL: A well-nourished male. No apparent distress. VITAL SIGNS: Noted. ABDOMEN: He has no real CVA tenderness. Abdomen is relatively soft. GENITOURINARY: Normal male. No testicular mass. LABORATORY DATA: CT scan and labs, all see chart. DIAGNOSES: Renal colic, hydronephrosis, and 3-mm distal ureteral stone. PLAN: I discussed the options with patient's mother. The patient is actually very pleasant gentleman and he is actually able to communicate. From Urology standpoint, he is going to go to the operative room as a relative emergency as quickly as possible. I am going to plan for a cystoscopy, ureteroscopy, even we will try to do everything all lithotripsy and try to insert a stent that we remove without putting the patient any extra procedures, able to make progress. For further plan, we will follow, but the pain is as follows: 1. Plan is to go to the OR. 2. Antibiotic therapy and then further plans will follow. Jamir Phillips MD
--- NOTE | 2017-06-21 08:42 | OP ---
PROCEDURE DATE: 06/04/2017 UROLOGY OPERATIVE REPORT PREOPERATIVE DIAGNOSES: Urolithiasis, hematuria, severe renal colic, hydronephrosis. POSTOPERATIVE DIAGNOSES: Urolithiasis, hematuria, severe renal colic, hydronephrosis. PROCEDURES: Cystoscopy, retrograde pyelogram, ureteroscopy, laser lithotripsy, and insertion of double J stent with dangles. SURGEON: Jamir Phillips M.D. COMPLICATIONS: There were no complications. ESTIMATED BLOOD LOSS: 10 mL. DRAINS: We left the drain in place. There is no visible stones by x-ray criteria . INDICATIONS: See history and physical for further details. A very pleasant gentleman; he happens to autistic; his mother provides most of the history, but she states he is having more pain than she would except, and he is not behaving himself. The patient was initially seen in the emergency room and then when he was doing better was discharged home. He came to my office. We discussed options with mother. We brought him back to the emergency room. I have discussed the options to see him for the above procedure. DESCRIPTION OF PROCEDURE: After obtaining informed consent, the patient was placed on the table. Routine monitors were placed. Time-outs were called to confirm the patient positioning. Antibiotic prophylaxis has been used. We introduced cystoscope via urethra. We identified the ureteral orifice. Pyelogram was performed. We confirmed the stone, hydronephrosis, etc. We now passed a wire up to the kidney without difficulty. We now introduced the ureteroscope adjacent to the wire. We have the safety wire in place and we introduced the ureteroscope. We used actually a second wire to dilate the distal ureteral orifice. Once we identified the stone, we are able to laser it. Once we did this, we cleared up the stone. We put a double J stent in with dangles. Overall, the patient tolerated procedure well without complication. Jamir Phillips MD
== END 2017-06-05 18:50 | disposition home or self-care (01) | DRG 310 ==
LOC: ED 15:47 → ERH 18:42 → 3RNO 21:20 → OBSVTOIN 06-04 14:37
PROVIDERS: ADMIT Internal Medicine; ATTEND Internal Medicine
PROC: 0TC68ZZ Extirpation of Matter from Right Ureter, Via Natural or Artificial Opening Endoscopic (ICD-10-PCS; principal; 2017-06-04 07:30)
PROC: 0T768DZ Dilation of Right Ureter with Intraluminal Device, Via Natural or Artificial Opening Endoscopic (ICD-10-PCS; 2017-06-04 07:30)
DX: N20.2 Calculus of kidney with calculus of ureter (principal); F84.0 Autistic disorder; J45.909 Unspecified asthma, uncomplicated; N13.9 Obstructive and reflux uropathy, unspecified; Z88.7 Allergy status to serum and vaccine; Z87.892 Personal history of anaphylaxis